=== PATIENT | male | born 1955 | race Caucasian/White ===

== ENCOUNTER → 2020-06-27 | Outpatient (CLI) | payer BC ==
[~2020-06-27] MED LIST: CYCLOBENZAPRINE10 MG PO; IBUPROFEN600 MG PO
== END ==
LOC: HEART 5 08:18
DX: I20.9 Angina pectoris, unspecified (principal); R94.39 Abnormal result of other cardiovascular function study
CPT/HCPCS: 78452; A9502; J2785

== ENCOUNTER → 2020-07-19 | Outpatient (CLI) | payer BC | LOC: ECHO 11:46 → NM 13:00 | DX: I20.9 Angina pectoris, unspecified (principal); I35.8 Other nonrheumatic aortic valve disorders | CPT/HCPCS: ECHO; 93306 ==

== ENCOUNTER 2020-08-27 07:57 | Emergency (ER) | payer MEDICARE, BC ==
[2020-08-27 09:14] LABS: HEMOGLOBIN 15.4 gm/dl (14.0-17.5); RED BLOOD COUNT 4.74 M/UL (4.20-5.50); WHITE BLOOD COUNT 5.6 K/UL (4.5-11.0)
[2020-08-27 09:39] LABS: BUN/CREATININE RATIO 23 (0-10)
[2020-08-27] MEDS ORDERED: IBUPROFEN600 MG PO (12:23)
[2020-08-27] MEDS ORDERED: CYCLOBENZAPRINE10 MG PO (12:23)
== END 2020-08-27 12:35 | disposition home or self-care (01) ==
LOC: ER1 07:57
PROVIDERS: Emergency Medicine
DX: M51.86 Other intervertebral disc disorders, lumbar region (principal)
CPT/HCPCS: 72131; 80053; 85025; 85652; 86140; 96374; 96375; 99284; J1100; J2270; J2405